=== PATIENT | male | born 1980 | race Caucasian/White ===

== ENCOUNTER 2017-03-22 07:28 | Emergency (ER) | payer OTHER ==
[~2017-03-22] VITALS: Ht 165.1 cm; Wt 86.4 kg
[2017-03-22] MEDS ORDERED: METF500T4 PO (07:31)
[2017-03-22 08:23] LABS: GLUCOSE COMMENT 2 Doctor Notified; GLUCOSE,POINT OF CARE 190 MG/DL (70-110)
[2017-03-22 08:39] LABS: BASOPHILS % (AUTO) 0.2 % (0.0-2.0); EOSINOPHILS % (AUTO) 0.2 % (1.0-6.0); HEMATOCRIT 51.2 % (41-53); HEMOGLOBIN 17.6 g/dL (13.5-17.5); LYMPHOCYTES % (AUTO) 6.2 % (22.0-44.0); MEAN CORPUSCULAR HEMOGLOBIN 31.7 pg (26.0-34.0); MEAN CORPUSCULAR HGB CONC 34.4 G/dL (31.0-37.0); MEAN CORPUSCULAR VOLUME 92 fL (80-100); MONOCYTES # (AUTO) 0.5 K/uL (0.1-1.0); MONOCYTES % (AUTO) 3.2 % (2.0-9.0); NEUTROPHILS # (AUTO) 15.2 K/uL (1.8-7.7); PLATELET COUNT (AUTO) 234 K/uL (150-450); RED BLOOD CELL COUNT(AUTO) 5.55 MIL/uL (4.50-5.90); RED CELL DISTRIBUTION WIDTH 13.2 % (11.5-14.5); WHITE BLOOD COUNT (AUTO) 16.8 K/uL (4.5-11.0)
[2017-03-22 08:40] LABS: NEUTROPHILS % (AUTO) 90.2 % (40.0-70.0)
[2017-03-22 08:41] LABS: PROTHROMBIN TIME 10.2 SEC (9.4-11.6)
[2017-03-22 09:01] LABS: B-TYPE NATRIURETIC PEPTIDE 67 pg/mL (0-100)
[2017-03-22 09:05] LABS: ALANINE AMINOTRANSFERASE 46 U/L (12-78); ALBUMIN 4.3 g/dL (3.4-5.0); ANION GAP 12 mmol/L (8-16); ASPARTATE AMINOTRANSFERASE 20 U/L (15-37); BILIRUBIN,TOTAL 0.6 mg/dL (0.1-1.0); CALCIUM, TOTAL 9.2 mg/dL (8.8-10.5); CARBON DIOXIDE 25 mmol/L (22-29); CHLORIDE 103 mmol/L (98-107); CREATINE KINASE MB 2.6 ng/mL (0-5); CREATINE KINASE, TOTAL 271 U/L (39-308); CREATININE 1.38 mg/dL (0.60-1.30); GLOMERULAR FILTR. RATE CALC 58 mL/min (>60); SODIUM SERUM 140 mmol/L (136-145); TOTAL PROTEIN, SERUM 7.9 g/dL (6.4-8.2); UREA NITROGEN, BLOOD 18 mg/dL (7-18)
[2017-03-22] MEDS ORDERED: SODIUM CHLORIDE 0.9% 1,000 ML IV ONE ×3 (09:45→14:00)
[2017-03-22 11:25] LABS: GLUCOSE, URINE (UA) 250 mg/dL (NEGATIVE); KETONES,URINE NEGATIVE (NEGATIVE); LEUKOCYTE ESTERASE ,URINE NEGATIVE (NEGATIVE); OCCULT BLOOD,URINE MODERATE (NEGATIVE); PROTEIN,URINE NEGATIVE (NEGATIVE)
[2017-03-22 11:45] LABS: ADD UA MICROSCOPIC YES
[2017-03-22 11:46] LABS: APPEARANCE,URINE HAZY (CLEAR)
[2017-03-22 11:48] LABS: SQUAMOUS EPITHELIAL CELL,UR Few /LPF (None Seen); WBC,URINE 0-2 /HPF (0-5)
[2017-03-22] MEDS ORDERED: KETOROLAC TROMETHAMINE 30 MG/ML VIAL IVP ONE (13:45)
[2017-03-22] MEDS ORDERED: ONDANSETRON HCL 4 MG/2 ML VIAL IVP ONE (14:00)
[2017-03-22] MEDS ORDERED: LISINOPRIL 10 MG TABLET PO ONE (14:00)
[2017-03-22 15:55] VITALS: BP 181/112
== END 2017-03-22 16:27 | disposition home or self-care (01) ==
LOC: EMS 07:32
DX: N20.1 Calculus of ureter (principal); N13.4 Hydroureter; I10 Essential (primary) hypertension; E11.9 Type 2 diabetes mellitus without complications; F17.210 Nicotine dependence, cigarettes, uncomplicated; Z91.19 Patient's noncompliance with other medical treatment and regimen
CPT/HCPCS: 36415; 71010; 74176; 80053; 81001; 82550; 82553; 82962; 83880; 84484; 85025; 85610; 85730; 93005; 96361; 96374; 96375; 99285; J1885; J2405; J7030

== ENCOUNTER 2020-05-11 10:30 | Emergency (ER) | payer SELFPAY ==
[~2020-05-11] VITALS: Ht 157.5 cm; Wt 81.8 kg
[~2020-05-11 10:30] MED LIST: METF-960 PO
[2020-05-11 10:36] VITALS: BP 149/89
[2020-05-11] MEDS ORDERED: IBUPROFEN 600 MG TABLET PO ONE (11:00)
[2020-05-11] MEDS ORDERED: CLINDAMYCIN HCL 150 MG CAPSULE PO ONE (11:00)
[2020-05-11] MEDS ORDERED: RAPID SEQUENCE KIT [RSI] 1 EACH KIT MISC ONE (16:03)
== END 2020-05-11 11:14 | disposition home or self-care (01) ==
LOC: EMS 10:35
DX: K08.89 Other specified disorders of teeth and supporting structures (principal); E11.9 Type 2 diabetes mellitus without complications; I10 Essential (primary) hypertension; F17.210 Nicotine dependence, cigarettes, uncomplicated; Z79.84 Long term (current) use of oral hypoglycemic drugs